=== PATIENT | male | born 1955 | race Caucasian/White ===

== ENCOUNTER → 2019-10-18 | Outpatient (CLI) | payer OTHER ==
[~2019-10-18] MED LIST: INCRUSE ELLI62.5 MCG IH; METOPROLOL SUCC25 M2 PO; OMEPRAZOLE40 MG PO; PRINIVIL10 MG PO
== END | disposition home or self-care (01) ==
LOC: CT 12:45
DX: J02.9 Acute pharyngitis, unspecified (principal); Z85.819 Personal history of malignant neoplasm of unspecified site of lip, oral cavity, and pharynx

== ENCOUNTER 2020-05-23 14:36 | Emergency (ER) | payer OTHER ==
[~2020-05-23] VITALS: Wt 68.0 kg
== END 2020-05-23 17:06 | disposition home or self-care (01) ==
LOC: ED 14:36
DX: S52.501A Unspecified fracture of the lower end of right radius, initial encounter for closed fracture (principal); S52.611A Displaced fracture of right ulna styloid process, initial encounter for closed fracture; K21.9 Gastro-esophageal reflux disease without esophagitis; I10 Essential (primary) hypertension; Z90.49 Acquired absence of other specified parts of digestive tract; Z79.899 Other long term (current) drug therapy; W18.40XA Slipping, tripping and stumbling without falling, unspecified, initial encounter; Y93.89 Activity, other specified; Y92.89 Other specified places as the place of occurrence of the external cause; Y99.8 Other external cause status

== ENCOUNTER → 2020-05-30 | Outpatient (CLI) | payer OTHER | END | disposition home or self-care (01) | LOC: ORTHO 13:45 | PROVIDERS: ATTEND Orthopaedic Surgery | DX: S62.101A Fracture of unspecified carpal bone, right wrist, initial encounter for closed fracture (principal); X58.XXXA Exposure to other specified factors, initial encounter; Y93.89 Activity, other specified; Y92.89 Other specified places as the place of occurrence of the external cause; Y99.8 Other external cause status ==

== ENCOUNTER 2020-09-03 18:19 | Emergency (ER) | payer OTHER ==
[2020-09-03 18:42] LABS: BASO # 0.1 10*3/uL (0.0-0.1); EOS # 0.1 10*3/uL (0.0-0.4); HEMATOCRIT 27.7 % (42.0-52.0); LYMPH # 2.6 10*3/uL (1.3-4.4); LYMPH % 38.2 % (27.0-41.0); MEAN CELL VOLUME 77.8 fl (80.0-94.0); MEAN CORPUSCULAR HGB 25.6 pg (27.0-31.0); MEAN CORPUSCULAR HGB CONC 32.9 g/dl (33.0-37.0); MEAN PLATELET VOLUME 8.9 fl (9.6-12.3); MONO # 0.8 10*3/uL (0.1-1.0); NEUT # 3.2 10*3/uL (2.3-7.9); NEUT % 47.4 % (47.0-73.0); PLATELET COUNT AUTOMATED 399 10*3/uL (130-400); RED BLOOD COUNT 3.56 10*6/uL (4.50-5.90); RED CELL DISTRI WIDTH 17.8 % (0-14.5); WHITE BLOOD COUNT 6.8 10*3/uL (4.8-10.8)
[2020-09-03 18:59] LABS: ALBUMIN 3.5 gm/dl (3.1-4.5); ALKALINE PHOSPHATASE 95 U/L (45-117); BUN 6 mg/dl (7-24); CHLORIDE 95 mmol/L (98-107); CREATININE 0.63 mg/dL (0.70-1.30); POTASSIUM 3.7 mmol/L (3.5-5.1); SGOT/AST 34 IU/L (3-35); SGPT/ALT 30 U/L (12-78); SODIUM 126 mmol/L (136-145); TOTAL PROTEIN 7.4 gm/dL (6.4-8.2)
[2020-09-04 08:05] LABS: BUN 7 mg/dl (7-24); CHLORIDE 99 mmol/L (98-107); CREATININE 0.51 mg/dL (0.70-1.30); POTASSIUM 3.9 mmol/L (3.5-5.1); SODIUM 130 mmol/L (136-145)
== END 2020-09-04 09:29 | disposition home or self-care (01) ==
LOC: ED 18:19
PROVIDERS: Emergency Medicine; Internal Medicine
DX: S01.01XA Laceration without foreign body of scalp, initial encounter (principal); E87.1 Hypo-osmolality and hyponatremia; Z79.899 Other long term (current) drug therapy; X58.XXXA Exposure to other specified factors, initial encounter; Y93.89 Activity, other specified; Y92.89 Other specified places as the place of occurrence of the external cause; Y99.8 Other external cause status

== ENCOUNTER 2020-09-08 15:00 | Emergency (ER) | payer OTHER | END 2020-09-08 15:09 | disposition left against medical advice (07) | LOC: ED 15:00 | DX: Z04.3 Encounter for examination and observation following other accident (principal); Z53.21 Procedure and treatment not carried out due to patient leaving prior to being seen by health care provider; W18.30XA Fall on same level, unspecified, initial encounter; Y93.89 Activity, other specified; Y92.89 Other specified places as the place of occurrence of the external cause; Y99.9 Unspecified external cause status ==

== ENCOUNTER 2020-09-25 14:23 | Emergency (ER) | payer OTHER ==
[2020-09-25 15:15] LABS: BASO # 0.1 10*3/uL (0.0-0.1); EOS # 0.1 10*3/uL (0.0-0.4); EOS % 1.9 % (1.0-4.0); HEMATOCRIT 21.7 % (42.0-52.0); LYMPH # 1.5 10*3/uL (1.3-4.4); MEAN CELL VOLUME 77.2 fl (80.0-94.0); MEAN CORPUSCULAR HGB 24.9 pg (27.0-31.0); MEAN CORPUSCULAR HGB CONC 32.3 g/dl (33.0-37.0); MEAN PLATELET VOLUME 9.2 fl (9.6-12.3); MONO # 0.5 10*3/uL (0.1-1.0); MONO % 10.4 % (3.0-9.0); NEUT # 2.7 10*3/uL (2.3-7.9); NEUT % 55.5 % (47.0-73.0); PLATELET COUNT AUTOMATED 575 10*3/uL (130-400); RED BLOOD COUNT 2.81 10*6/uL (4.50-5.90); RED CELL DISTRI WIDTH 18.3 % (0-14.5); WHITE BLOOD COUNT 4.8 10*3/uL (4.8-10.8)
[2020-09-25 15:35] LABS: ALBUMIN 3.3 gm/dl (3.1-4.5); BUN 5 mg/dl (7-24); CHLORIDE 101 mmol/L (98-107); CPK 112 U/L (39-308); CREATININE 0.57 mg/dL (0.70-1.30); POTASSIUM 3.6 mmol/L (3.5-5.1); SGOT/AST 29 IU/L (3-35); SGPT/ALT 24 U/L (12-78); SODIUM 130 mmol/L (136-145); TOTAL PROTEIN 6.8 gm/dL (6.4-8.2)
[2020-09-25 15:36] LABS: ALKALINE PHOSPHATASE 115 U/L (45-117)
[2020-09-25 15:44] LABS: TROPONIN I < 0.015 ng/ml (<0.045)
[2020-10-02 13:07] LABS: ORGANISM ID Final report (.)
== END 2020-09-25 17:30 | disposition left against medical advice (07) ==
LOC: ED 14:23
PROVIDERS: Emergency Medicine
DX: I62.00 Nontraumatic subdural hemorrhage, unspecified (principal); F10.20 Alcohol dependence, uncomplicated; D64.9 Anemia, unspecified; F17.200 Nicotine dependence, unspecified, uncomplicated; Z79.899 Other long term (current) drug therapy; Y90.3 Blood alcohol level of 60-79 mg/100 ml

== ENCOUNTER 2021-02-22 19:23 | Emergency (ER) | payer OTHER ==
[2021-02-22 20:17] LABS: HEMATOCRIT 27.8 % (42.0-52.0); MEAN CELL VOLUME 76.4 fl (80.0-94.0); MEAN CORPUSCULAR HGB CONC 32.7 g/dl (33.0-37.0); MEAN PLATELET VOLUME 9.3 fl (9.6-12.3); PLATELET COUNT AUTOMATED 425 10*3/uL (130-400); RED BLOOD COUNT 3.64 10*6/uL (4.50-5.90); WHITE BLOOD COUNT 12.2 10*3/uL (4.8-10.8)
[2021-02-22 20:33] LABS: ALBUMIN 3.5 gm/dl (3.1-4.5); ALKALINE PHOSPHATASE 103 U/L (45-117); BUN 5 mg/dl (7-24); CHLORIDE 98 mmol/L (98-107); CREATININE 0.66 mg/dL (0.70-1.30); POTASSIUM 3.5 mmol/L (3.5-5.1); SGOT/AST 39 IU/L (3-35); SGPT/ALT 24 U/L (12-78); SODIUM 134 mmol/L (136-145); TOTAL PROTEIN 7.8 gm/dL (6.4-8.2)
[2021-02-22 20:35] LABS: TOTAL CELLS COUNTED 100 #CELLS
[2021-02-22 20:36] LABS: BURR CELLS FEW; PLATELET SUFFICIENCY HIGH (NORMAL); ROULEAUX SLIGHT; TARGET CELLS MODERATE
== END 2021-02-23 01:32 | disposition short-term general hospital (02) ==
LOC: ED 19:23
PROVIDERS: Emergency Medicine
DX: S02.2XXA Fracture of nasal bones, initial encounter for closed fracture (principal); S01.511A Laceration without foreign body of lip, initial encounter; S22.41XA Multiple fractures of ribs, right side, initial encounter for closed fracture; S02.609A Fracture of mandible, unspecified, initial encounter for closed fracture; H11.31 Conjunctival hemorrhage, right eye; I10 Essential (primary) hypertension; J45.909 Unspecified asthma, uncomplicated; Z79.899 Other long term (current) drug therapy; W18.39XA Other fall on same level, initial encounter; Y93.89 Activity, other specified; Y92.89 Other specified places as the place of occurrence of the external cause; Y99.8 Other external cause status

== ENCOUNTER 2021-04-30 18:18 | Emergency (ER) | payer MEDICARE, MEDICAID ==
[2021-04-30 19:07] LABS: BASO # 0.1 10*3/uL (0.0-0.1); BASO % 0.7 % (0.0-1.0); EOS # 0.2 10*3/uL (0.0-0.4); EOS % 2.1 % (1.0-4.0); HEMATOCRIT 24.2 % (42.0-52.0); LYMPH # 1.6 10*3/uL (1.3-4.4); LYMPH % 22.8 % (27.0-41.0); MEAN CORPUSCULAR HGB 24.5 pg (27.0-31.0); MEAN CORPUSCULAR HGB CONC 33.1 g/dl (33.0-37.0); MEAN PLATELET VOLUME 8.7 fl (9.6-12.3); MONO # 0.7 10*3/uL (0.1-1.0); MONO % 9.6 % (3.0-9.0); NEUT # 4.5 10*3/uL (2.3-7.9); NEUT % 64.2 % (47.0-73.0); PLATELET COUNT AUTOMATED 528 10*3/uL (130-400); RED BLOOD COUNT 3.27 10*6/uL (4.50-5.90); RED CELL DISTRI WIDTH 21.2 % (0-14.5); WHITE BLOOD COUNT 7.1 10*3/uL (4.8-10.8)
[2021-04-30 19:27] LABS: ALBUMIN 2.7 gm/dl (3.1-4.5); BUN 2 mg/dl (7-24); CHLORIDE 98 mmol/L (98-107); CREATININE 0.48 mg/dL (0.70-1.30); POTASSIUM 3.6 mmol/L (3.5-5.1); SGOT/AST 39 IU/L (3-35); SGPT/ALT 20 U/L (12-78); SODIUM 130 mmol/L (136-145); TOTAL PROTEIN 7.1 gm/dL (6.4-8.2)
[2021-04-30 19:28] LABS: ALKALINE PHOSPHATASE 134 U/L (45-117)
== END 2021-04-30 20:54 | disposition home or self-care (01) ==
LOC: ED 18:18
PROVIDERS: Physician Assistant
DX: R05.9 Cough, unspecified (principal); Z79.899 Other long term (current) drug therapy

== ENCOUNTER 2021-09-10 18:39 | Inpatient (IN) | payer MEDICARE, MEDICAID ==
[~2021-09-10] VITALS: Ht 167.6 cm; Wt 49.6 kg
[~2021-09-10 18:39] MED LIST changes: +LEVOFLOXACIN750 M2 PO; +METRONIDAZOLE500 M1 PO; +Nystatin Ointme30 GM T; +Synthroid,Levo88 MCG PO
[2021-09-10 19:28] LABS: BASO % 0.3 % (0.0-1.0); HEMATOCRIT 27.4 % (42.0-52.0); LYMPH # 0.6 10*3/uL (1.3-4.4); LYMPH % 5.8 % (27.0-41.0); MEAN CELL VOLUME 89.3 fl (80.0-94.0); MEAN CORPUSCULAR HGB CONC 33.6 g/dl (33.0-37.0); MEAN PLATELET VOLUME 10.1 fl (9.6-12.3); MONO # 0.5 10*3/uL (0.1-1.0); MONO % 4.8 % (3.0-9.0); NEUT # 9.3 10*3/uL (2.3-7.9); NEUT % 88.6 % (47.0-73.0); PLATELET COUNT AUTOMATED 211 10*3/uL (130-400); RED BLOOD COUNT 3.07 10*6/uL (4.50-5.90); RED CELL DISTRI WIDTH 19.9 % (0-14.5); WHITE BLOOD COUNT 10.5 10*3/uL (4.8-10.8)
[2021-09-10 19:42] LABS: CREATININE 1.61 mg/dL (0.70-1.30); POTASSIUM 3.2 mmol/L (3.5-5.1); TOTAL PROTEIN 5.8 gm/dL (6.4-8.2)
[2021-09-10 20:19] LABS: THYROID STIM HORMONE (HS) 33.7 uIU/ml (0.358-4.75)
[2021-09-11 02:03] VITALS: BP 120/60
[2021-09-11 03:51] LABS: MEAN CORPUSCULAR HGB 29.8 pg (27.0-31.0); MEAN CORPUSCULAR HGB CONC 35.6 g/dl (33.0-37.0); MEAN PLATELET VOLUME 10.2 fl (9.6-12.3); PLATELET COUNT AUTOMATED 195 10*3/uL (130-400); RED BLOOD COUNT 2.48 10*6/uL (4.50-5.90); RED CELL DISTRI WIDTH 18.5 % (0-14.5); WHITE BLOOD COUNT 11.1 10*3/uL (4.8-10.8)
[2021-09-11 03:54] LABS: MANUAL DIFF REFLEX YES; MEAN CELL VOLUME 83.9 fl (80.0-94.0)
[2021-09-11 03:57] LABS: HEMATOCRIT 20.8 % (42.0-52.0)
[2021-09-11 04:02] LABS: ACT PARTIAL THROMBO TIME 34.6 SECONDS (20.0-32.1); INTERNATIONAL NORM RATIO 1.8 (2.0-3.5)
[2021-09-11 04:15] LABS: ALKALINE PHOSPHATASE 156 U/L (45-117); BUN 9 mg/dl (7-24); CHLORIDE 96 mmol/L (98-107); CHOLESTEROL 96 mg/dL (<200); CREATININE 1.11 mg/dL (0.70-1.30); LDL CHOLESTEROL 37 mg/dL (9-159); POTASSIUM 3.1 mmol/L (3.5-5.1); SGOT/AST 79 IU/L (3-35); SGPT/ALT 31 U/L (12-78); SODIUM 130 mmol/L (136-145); TOTAL PROTEIN 4.6 gm/dL (6.4-8.2); TRIGLYCERIDES 81 mg/dl (<150)
[2021-09-11 04:19] LABS: MICROCYTOSIS SLIGHT; PLATELET SUFFICIENCY NORMAL (NORMAL); TOTAL CELLS COUNTED 100 #CELLS
[2021-09-11 04:45] VITALS: BP 122/62
[2021-09-11 07:10] LABS: BILIRUBIN Negative (Negative); BLOOD 2+ (Negative); CLARITY Clear (Clear); COLOR Yellow (Yellow); GLUCOSE Negative (Negative); KETONE Trace (Negative); LEUKO ESTERASE Negative (Negative); NITRITE Negative (Negative); PH 5.5 (4.5-8.0); UROBILINOGEN 0.2 E.U./dl (0.0-1.0)
[2021-09-11 07:23] LABS: URINE AMPHETAMINES < 1000 (1000ng/ml); URINE BARBITURATES < 200 (200ng/ml); URINE BENZODIAZEPINES < 200 (200ng/ml); URINE CANNABINOIDS (THC) < 50 (50ng/ml); URINE COCAINE < 300 (300ng/ml); URINE METHADONE < 300 (300ng/ml); URINE OPIATES < 300 (300ng/ml)
[2021-09-11 07:24] LABS: BACTERIA 1+; RBC 21-30 rbc/hpf (0-2)
[2021-09-11 07:30] LABS: URINE PHENCYCLIDINE < 25 (25ng/ml)
[2021-09-11 08:00] VITALS: BP 114/87
[2021-09-11 12:00] VITALS: BP 129/62
[2021-09-11 16:00] VITALS: BP 120/57
[2021-09-11 20:00] VITALS: BP 124/72
[2021-09-12] VITALS: BP 132/64
[2021-09-12 05:32] LABS: ALKALINE PHOSPHATASE 179 U/L (45-117); BUN 9 mg/dl (7-24); CHLORIDE 100 mmol/L (98-107); CREATININE 0.72 mg/dL (0.70-1.30); SGOT/AST 134 IU/L (3-35); SGPT/ALT 38 U/L (12-78); SODIUM 136 mmol/L (136-145); TOTAL PROTEIN 5.3 gm/dL (6.4-8.2)
[2021-09-12 06:13] LABS: HEMATOCRIT 21.3 % (42.0-52.0); MEAN CELL VOLUME 86.9 fl (80.0-94.0); MEAN CORPUSCULAR HGB 29.8 pg (27.0-31.0); MEAN CORPUSCULAR HGB CONC 34.3 g/dl (33.0-37.0); MEAN PLATELET VOLUME 10.8 fl (9.6-12.3); PLATELET COUNT AUTOMATED 200 10*3/uL (130-400); RED BLOOD COUNT 2.45 10*6/uL (4.50-5.90); RED CELL DISTRI WIDTH 19.5 % (0-14.5); WHITE BLOOD COUNT 8.6 10*3/uL (4.8-10.8)
[2021-09-12 06:27] LABS: MANUAL DIFF REFLEX YES
[2021-09-12 07:02] LABS: BASOPHILS 1 % (0-1); TOTAL CELLS COUNTED 100 #CELLS
[2021-09-12 07:03] LABS: PLATELET SUFFICIENCY NORMAL (NORMAL); TARGET CELLS FEW
[2021-09-12 08:00] VITALS: BP 124/64
[2021-09-12 11:52] VITALS: BP 137/71
[2021-09-12 16:00] VITALS: BP 108/68
[2021-09-12 20:00] VITALS: BP 133/76
== END 2021-09-12 21:10 | disposition left against medical advice (07) | DRG 604 ==
LOC: ED 18:39 → EDHOLD 09-11 00:50 → 4E 09-11 00:50
PROVIDERS: Emergency Medicine; Internal Medicine; ADMIT Family Medicine; ATTEND Family Medicine
PROC: 0HQ0XZZ Repair Scalp Skin, External Approach (ICD-10-PCS; principal; 2021-09-11)
DX: S01.81XA Laceration without foreign body of other part of head, initial encounter (principal); E43 Unspecified severe protein-calorie malnutrition; N17.0 Acute kidney failure with tubular necrosis; K20.91 Esophagitis, unspecified with bleeding; R65.10 Systemic inflammatory response syndrome (SIRS) of non-infectious origin without acute organ dysfunction; Z68.1 Body mass index [BMI] 19.9 or less, adult; E87.2 Acidosis; E87.1 Hypo-osmolality and hyponatremia; E87.6 Hypokalemia; S09.90XA Unspecified injury of head, initial encounter; C14.0 Malignant neoplasm of pharynx, unspecified; Z20.822 Contact with and (suspected) exposure to COVID-19; W18.39XA Other fall on same level, initial encounter; E87.8 Other disorders of electrolyte and fluid balance, not elsewhere classified; R73.9 Hyperglycemia, unspecified; E83.42 Hypomagnesemia; K20.90 Esophagitis, unspecified without bleeding; S41.112A Laceration without foreign body of left upper arm, initial encounter; Z53.29 Procedure and treatment not carried out because of patient's decision for other reasons; S41.101A Unspecified open wound of right upper arm, initial encounter; D64.9 Anemia, unspecified; S41.102A Unspecified open wound of left upper arm, initial encounter; S02.609D Fracture of mandible, unspecified, subsequent encounter for fracture with routine healing; S22.41XD Multiple fractures of ribs, right side, subsequent encounter for fracture with routine healing; Y93.89 Activity, other specified; Y92.098 Other place in other non-institutional residence as the place of occurrence of the external cause; Y99.8 Other external cause status; Z90.49 Acquired absence of other specified parts of digestive tract; Z87.891 Personal history of nicotine dependence; Z72.89 Other problems related to lifestyle

== ENCOUNTER 2021-09-27 21:32 | Inpatient (IN) | payer MEDICARE, MEDICAID ==
[~2021-09-27] VITALS: Ht 165.1 cm; Wt 52.0 kg
[2021-09-27 21:34] VITALS: BP 114/72
[2021-09-28 05:44] LABS: ALKALINE PHOSPHATASE 186 U/L (45-117); CHLORIDE 99 mmol/L (98-107); CREATININE 0.49 mg/dL (0.70-1.30); POTASSIUM 3.1 mmol/L (3.5-5.1); SGOT/AST 70 IU/L (3-35); SGPT/ALT 45 U/L (12-78); SODIUM 130 mmol/L (136-145); TOTAL PROTEIN 5.2 gm/dL (6.4-8.2)
[2021-09-28 05:52] LABS: BUN < 1 mg/dl (7-24)
[2021-09-28 06:10] LABS: BASO % 0.6 % (0.0-1.0); EOS % 0.4 % (1.0-4.0); HEMATOCRIT 21.3 % (42.0-52.0); LYMPH % 14.2 % (27.0-41.0); MEAN CELL VOLUME 85.9 fl (80.0-94.0); MEAN CORPUSCULAR HGB 30.6 pg (27.0-31.0); MEAN CORPUSCULAR HGB CONC 35.7 g/dl (33.0-37.0); MEAN PLATELET VOLUME 9.9 fl (9.6-12.3); MONO # 0.5 10*3/uL (0.1-1.0); MONO % 7.6 % (3.0-9.0); NEUT # 5.1 10*3/uL (2.3-7.9); NEUT % 76.8 % (47.0-73.0); PLATELET COUNT AUTOMATED 695 10*3/uL (130-400); RED BLOOD COUNT 2.48 10*6/uL (4.50-5.90); RED CELL DISTRI WIDTH 18.8 % (0-14.5); WHITE BLOOD COUNT 6.7 10*3/uL (4.8-10.8)
[2021-09-28 07:07] VITALS: BP 131/50
[2021-09-28 08:00] VITALS: BP 149/84
[2021-09-28 12:00] VITALS: BP 149/84
[2021-09-28 16:00] VITALS: BP 157/85
[2021-09-28 20:00] VITALS: BP 160/98
[2021-09-28 22:25] VITALS: BP 140/80
[2021-09-29 06:01] LABS: ALKALINE PHOSPHATASE 203 U/L (45-117); BUN 5 mg/dl (7-24); CHLORIDE 101 mmol/L (98-107); POTASSIUM 3.1 mmol/L (3.5-5.1); SGOT/AST 49 IU/L (3-35); SGPT/ALT 42 U/L (12-78); SODIUM 133 mmol/L (136-145); TOTAL PROTEIN 5.4 gm/dL (6.4-8.2)
[2021-09-29 06:02] LABS: BASO # 0.1 10*3/uL (0.0-0.1); BASO % 0.8 % (0.0-1.0); EOS % 0.4 % (1.0-4.0); HEMATOCRIT 22.8 % (42.0-52.0); LYMPH # 1.2 10*3/uL (1.3-4.4); LYMPH % 15.6 % (27.0-41.0); MEAN CORPUSCULAR HGB 30.5 pg (27.0-31.0); MEAN CORPUSCULAR HGB CONC 35.1 g/dl (33.0-37.0); MEAN PLATELET VOLUME 9.7 fl (9.6-12.3); MONO # 0.7 10*3/uL (0.1-1.0); MONO % 9.4 % (3.0-9.0); NEUT # 5.7 10*3/uL (2.3-7.9); NEUT % 73.5 % (47.0-73.0); PLATELET COUNT AUTOMATED 671 10*3/uL (130-400); RED BLOOD COUNT 2.62 10*6/uL (4.50-5.90); WHITE BLOOD COUNT 7.7 10*3/uL (4.8-10.8)
[2021-09-29 08:00] VITALS: BP 121/75
[2021-09-29 12:00] VITALS: BP 147/77
[2021-09-29 16:00] VITALS: BP 121/74
[2021-09-29 20:00] VITALS: BP 129/60
[2021-09-30] VITALS (10 sets, daily range): BP systolic 107–139; BP diastolic 65–81
[2021-09-30 06:06] LABS: BUN 8 mg/dl (7-24); CHLORIDE 99 mmol/L (98-107); CREATININE 0.92 mg/dL (0.70-1.30); POTASSIUM 3.9 mmol/L (3.5-5.1); SODIUM 132 mmol/L (136-145)
[2021-09-30 06:13] LABS: BASO # 0.1 10*3/uL (0.0-0.1); BASO % 0.6 % (0.0-1.0); EOS % 0.1 % (1.0-4.0); LYMPH % 11.2 % (27.0-41.0); MEAN CELL VOLUME 85.4 fl (80.0-94.0); MEAN CORPUSCULAR HGB 30.8 pg (27.0-31.0); MEAN CORPUSCULAR HGB CONC 36.1 g/dl (33.0-37.0); MEAN PLATELET VOLUME 9.9 fl (9.6-12.3); MONO # 0.6 10*3/uL (0.1-1.0); MONO % 7.1 % (3.0-9.0); NEUT # 7.3 10*3/uL (2.3-7.9); NEUT % 80.7 % (47.0-73.0); PLATELET COUNT AUTOMATED 587 10*3/uL (130-400); RED CELL DISTRI WIDTH 18.5 % (0-14.5); WHITE BLOOD COUNT 9.1 10*3/uL (4.8-10.8)
[2021-09-30 06:22] LABS: HEMATOCRIT 20.5 % (42.0-52.0)
[2021-09-30 06:29] LABS: INTERNATIONAL NORM RATIO 1.3 (2.0-3.5)
[2021-10-01] VITALS (12 sets, daily range): BP systolic 114–149; BP diastolic 54–85
[2021-10-01 06:09] LABS: BUN 12 mg/dl (7-24); CHLORIDE 104 mmol/L (98-107); CREATININE 0.68 mg/dL (0.70-1.30)
[2021-10-01 06:12] LABS: SODIUM 135 mmol/L (136-145)
[2021-10-01 06:19] LABS: POTASSIUM 5.4 mmol/L (3.5-5.1)
[2021-10-01 06:53] LABS: MEAN CORPUSCULAR HGB 31.1 pg (27.0-31.0); MEAN CORPUSCULAR HGB CONC 34.5 g/dl (33.0-37.0); MEAN PLATELET VOLUME 10.4 fl (9.6-12.3); PLATELET COUNT AUTOMATED 447 10*3/uL (130-400); RED BLOOD COUNT 1.96 10*6/uL (4.50-5.90); RED CELL DISTRI WIDTH 19.4 % (0-14.5); WHITE BLOOD COUNT 6.3 10*3/uL (4.8-10.8)
[2021-10-01 06:55] LABS: MANUAL DIFF REFLEX YES
[2021-10-01 06:56] LABS: MEAN CELL VOLUME 90.3 fl (80.0-94.0)
[2021-10-01 06:58] LABS: HEMATOCRIT 17.7 % (42.0-52.0)
[2021-10-01 08:22] LABS: BURR CELLS MODERATE; TOTAL CELLS COUNTED 100 #CELLS
[2021-10-01 08:23] LABS: PLATELET SUFFICIENCY HIGH (NORMAL); POLYCHROMASIA SLIGHT; TARGET CELLS MODERATE
[2021-10-01 08:24] LABS: SCHISTOCYTES FEW
[2021-10-01 14:45] LABS: HEMATOCRIT 23.6 % (42.0-52.0); LYMPH # 1.3 10*3/uL (1.3-4.4); LYMPH % 14.6 % (27.0-41.0); MEAN CELL VOLUME 91.5 fl (80.0-94.0); MEAN CORPUSCULAR HGB 30.6 pg (27.0-31.0); MEAN CORPUSCULAR HGB CONC 33.5 g/dl (33.0-37.0); MEAN PLATELET VOLUME 9.8 fl (9.6-12.3); MONO # 0.8 10*3/uL (0.1-1.0); MONO % 9.1 % (3.0-9.0); NEUT # 6.9 10*3/uL (2.3-7.9); PLATELET COUNT AUTOMATED 411 10*3/uL (130-400); RED BLOOD COUNT 2.58 10*6/uL (4.50-5.90); WHITE BLOOD COUNT 9.1 10*3/uL (4.8-10.8)
[2021-10-02] VITALS: BP 140/71
[2021-10-02 06:24] LABS: BUN 15 mg/dl (7-24); CHLORIDE 105 mmol/L (98-107); CREATININE 0.64 mg/dL (0.70-1.30); SODIUM 136 mmol/L (136-145)
[2021-10-02 06:27] LABS: BASO % 0.2 % (0.0-1.0); EOS % 0.6 % (1.0-4.0); HEMATOCRIT 22.7 % (42.0-52.0); LYMPH # 1.1 10*3/uL (1.3-4.4); LYMPH % 21.3 % (27.0-41.0); MEAN CELL VOLUME 90.8 fl (80.0-94.0); MEAN CORPUSCULAR HGB 31.2 pg (27.0-31.0); MEAN CORPUSCULAR HGB CONC 34.4 g/dl (33.0-37.0); MEAN PLATELET VOLUME 10.2 fl (9.6-12.3); MONO # 0.5 10*3/uL (0.1-1.0); MONO % 10.4 % (3.0-9.0); NEUT # 3.5 10*3/uL (2.3-7.9); NEUT % 67.1 % (47.0-73.0); PLATELET COUNT AUTOMATED 386 10*3/uL (130-400); RED CELL DISTRI WIDTH 18.5 % (0-14.5); WHITE BLOOD COUNT 5.2 10*3/uL (4.8-10.8)
[2021-10-02 06:42] LABS: POTASSIUM 3.9 mmol/L (3.5-5.1)
[2021-10-02 08:00] VITALS: BP 125/70
[2021-10-02 12:00] VITALS: BP 114/53
[2021-10-02 16:00] VITALS: BP 152/75
[2021-10-02 20:00] VITALS: BP 136/69
[2021-10-03] VITALS: BP 135/75
[2021-10-03 05:58] LABS: BUN 16 mg/dl (7-24); CHLORIDE 108 mmol/L (98-107); CREATININE 0.62 mg/dL (0.70-1.30); POTASSIUM 4.3 mmol/L (3.5-5.1); SODIUM 140 mmol/L (136-145)
[2021-10-03 06:21] LABS: HEMATOCRIT 24.4 % (42.0-52.0); MEAN CELL VOLUME 90.7 fl (80.0-94.0); MEAN CORPUSCULAR HGB 31.2 pg (27.0-31.0); MEAN CORPUSCULAR HGB CONC 34.4 g/dl (33.0-37.0); MEAN PLATELET VOLUME 10.2 fl (9.6-12.3); PLATELET COUNT AUTOMATED 372 10*3/uL (130-400); RED BLOOD COUNT 2.69 10*6/uL (4.50-5.90); RED CELL DISTRI WIDTH 19.2 % (0-14.5); WHITE BLOOD COUNT 6.1 10*3/uL (4.8-10.8)
[2021-10-03 06:31] LABS: MANUAL DIFF REFLEX YES
[2021-10-03 07:51] LABS: BASOPHILS 2 % (0-1); TOTAL CELLS COUNTED 100 #CELLS
[2021-10-03 07:52] LABS: OVALOCYTES FEW; PLATELET SUFFICIENCY NORMAL (NORMAL); POLYCHROMASIA SLIGHT; TARGET CELLS FEW; TOXIC GRANULATION SLIGHT
[2021-10-03 08:00] VITALS: BP 129/72
[2021-10-03 12:00] VITALS: BP 120/67
[2021-10-03] MEDS ORDERED: HYDROCODONE-AC1 EAC1 PO (12:05)
[2021-10-03] MEDS ORDERED: VITAMIN D350 MC2 PO (12:05)
[2021-10-03] MEDS ORDERED: ASPIRIN ADULT L81 M2 PO (12:05)
== END 2021-10-03 17:22 | DRG 480 ==
LOC: ED 21:32 → EDHOLD 23:38 → 5E 23:38
PROVIDERS: Family Medicine; Internal Medicine; Orthopaedic Surgery; Student in an Organized Health Care Education/Training Program; ADMIT Internal Medicine; ATTEND Internal Medicine
PROC: 0QS704Z Reposition Left Upper Femur with Internal Fixation Device, Open Approach (ICD-10-PCS; principal; 2021-09-30)
PROC: 3E0T3BZ Introduction of Anesthetic Agent into Peripheral Nerves and Plexi, Percutaneous Approach (ICD-10-PCS; 2021-09-30)
PROC: 3E0T33Z Introduction of Anti-inflammatory into Peripheral Nerves and Plexi, Percutaneous Approach (ICD-10-PCS; 2021-09-30)
PROC: 30233N1 Transfusion of Nonautologous Red Blood Cells into Peripheral Vein, Percutaneous Approach (ICD-10-PCS; 2021-10-01)
DX: S72.142A Displaced intertrochanteric fracture of left femur, initial encounter for closed fracture (principal); E43 Unspecified severe protein-calorie malnutrition; E87.1 Hypo-osmolality and hyponatremia; Z68.1 Body mass index [BMI] 19.9 or less, adult; Z20.822 Contact with and (suspected) exposure to COVID-19; S09.90XA Unspecified injury of head, initial encounter; S01.80XA Unspecified open wound of other part of head, initial encounter; S01.81XA Laceration without foreign body of other part of head, initial encounter; E03.9 Hypothyroidism, unspecified; E87.6 Hypokalemia; E83.42 Hypomagnesemia; D64.9 Anemia, unspecified; D75.839 Thrombocytosis, unspecified; S51.812A Laceration without foreign body of left forearm, initial encounter; Z90.49 Acquired absence of other specified parts of digestive tract; Z85.89 Personal history of malignant neoplasm of other organs and systems; Z87.81 Personal history of (healed) traumatic fracture; Z87.891 Personal history of nicotine dependence; W18.39XA Other fall on same level, initial encounter; Y93.89 Activity, other specified; Y92.89 Other specified places as the place of occurrence of the external cause; Y99.8 Other external cause status

== ENCOUNTER → 2021-10-21 | Outpatient (CLI) | payer MEDICARE, MEDICAID ==
[~2021-10-21] MED LIST changes: +ASPIRIN ADULT L81 M2 PO; +HYDROCODONE-AC1 EAC1 PO; +VITAMIN D350 MC2 PO
== END | disposition home or self-care (01) ==
LOC: ORTHO 00:47
PROVIDERS: ATTEND Orthopaedic Surgery
DX: S72.142D Displaced intertrochanteric fracture of left femur, subsequent encounter for closed fracture with routine healing (principal); X58.XXXD Exposure to other specified factors, subsequent encounter

== ENCOUNTER 2021-10-27 13:59 | Emergency (ER) | payer MEDICARE, MEDICAID ==
[~2021-10-27] VITALS: Wt 43.1 kg
== END 2021-10-27 14:42 ==
LOC: ED 13:59
DX: J95.03 Malfunction of tracheostomy stoma (principal); R47.01 Aphasia; R06.02 Shortness of breath; Z79.82 Long term (current) use of aspirin; Z79.899 Other long term (current) drug therapy; Z98.890 Other specified postprocedural states; Z90.49 Acquired absence of other specified parts of digestive tract; Z87.891 Personal history of nicotine dependence

== ENCOUNTER 2021-11-18 22:09 | Emergency (ER) | payer MEDICARE, MEDICAID ==
[~2021-11-18] VITALS: Wt 41.3 kg
[2021-11-18 22:12] VITALS: BP 117/81
[2021-11-18 23:12] VITALS: BP 111/74
== END 2021-11-18 23:55 | disposition home or self-care (01) ==
LOC: ED 22:09 → EDHOLD 23:02 → ED 23:02
DX: R06.02 Shortness of breath (principal); R09.81 Nasal congestion; Z79.82 Long term (current) use of aspirin; Z79.899 Other long term (current) drug therapy; Z98.890 Other specified postprocedural states; Z90.49 Acquired absence of other specified parts of digestive tract; Z87.891 Personal history of nicotine dependence